=== PATIENT | female | born 1980 | race Two or more races ===

== ENCOUNTER 2024-06-10 10:21 | Emergency (ER) | payer BC, SELFPAY ==
[2024-06-10 10:52] VITALS: BP 131/85; PULSE 73; RESP 18; TEMP 36.8; O2SAT 98; BMI 22.8
--- NOTE | 2024-06-10 11:11 | XR_ITS ---
EXAMINATION: Ankle, left 3 views . Technique: Ankle AP, oblique, lateral 3 views Date and time of exam: June 10, 2024 1116 hrs. Indications: Patient fell last week with injury to the ankle, ankle pain Findings: No ankle dislocation On the AP view of the foot there is a small chip fracture off the fibular tip which may be acute This is not well visualized on this examination The appearance should be clinically correlated Impression: No ankle dislocation On the AP portable film there is a small chip fracture off the fibular tip which may be acute, the appearance should be clinically correlated
--- NOTE | 2024-06-10 11:11 | XR_ITS ---
Examination: Foot, left, 3 views Technique: AP, oblique, lateral views foot, 3 views Date and time of exam: June 10, 2024 1116 hrs. Indications: Patient fell last week with injury to the foot, persistent foot pain Findings: No acute foot fracture On the AP view of the foot there is a small chip fracture off the fibular tip, clinical correlation advised Impression: On the AP foot film there is a small chip fracture off the fibular tip which may be acute, clinical correlation advised
--- NOTE | 2024-06-10 12:01 | EDNOTE_ITS ---
<Statement entered by Kaycee Osman MD - 06/10/24 16:21> As co-signing physician, I was present and available for consult prn. I concur with the plan and care as documented by the midlevel provider. Lower Extremity Injury RME/HPI General Chief Complaint: Extremity Injury, Lower Stated Complaint: left knee-foot pain / swelling Time Seen by Provider: 06/10/24 10:43 Arrival date/time: 06/10/24 10:21 44-year-old male presents emergency department with complaint of left ankle and left foot pain after parasailing in [place] Limitations: no limitations Related Data Home Medications ?Medication ?Instructions ?Recorded ?Confirmed alprazolam 1 mg tablet 1 mg PO TID 07/04/22 07/04/22 cyclobenzaprine 10 mg tablet 10 mg PO HS PRN Spasms 07/04/22 07/04/22 escitalopram oxalate 10 mg tablet 10 mg PO QDAY 07/04/22 07/04/22 hydrocodone 5 mg-acetaminophen 325 1 tab PO QDAY PRN Pain 07/04/22 07/04/22 mg tablet Previous Rx's ?Medication ?Instructions ?Recorded azithromycin 250 mg tablet See Rx Instructions PO .COMPLEX #6 02/14/23 tabs dicyclomine 20 mg tablet 20 mg PO TID #30 tabs 11/24/23 ibuprofen 800 mg tablet 800 mg PO TID PRN pain #30 tabs 11/24/23 lactulose 20 gram oral packet 20 g PO BID PRN constipation #30 ea 11/24/23 Allergies Allergy/AdvReac Type Severity Reaction Status Date / Time coconut Allergy Severe Anaphylaxis Verified 06/10/24 10:22 phenazopyridine Allergy Severe HIVES Verified 06/10/24 10:22 tomato Allergy Severe HIVES Verified 06/10/24 10:22 Review of Systems Review of Systems Systems Reviewed: All systems reviewed, normal except as documented Constitutional Constitutional: Reports system reviewed and no additional complaints, except as documented, Denies fever(s) and Denies headache(s) Eyes Eyes: Reports system reviewed and no additional complaints, except as documented and Denies blurry vision ENT Ears, Nose, Mouth, and Throat: Reports system reviewed and no additional complaints, except as documented, Denies headache(s), Denies nasal congestion and Denies nasal discharge Cardiovascular Cardiovascular: Reports system reviewed and no additional complaints, except as documented, Denies chest pain and Denies dyspnea Respiratory Respiratory: Reports system reviewed and no additional complaints, except as documented, Denies chest congestion, Denies cough and Denies dyspnea Gastrointestinal Gastrointestinal: Reports system reviewed and no additional complaints, except as documented and Denies abdominal pain Musculoskeletal Musculoskeletal: Reports system reviewed and no additional complaints, except as documented, Reports abnormal gait, Reports arthralgias, Denies deformity, Reports joint swelling, Denies numbness, Reports stiffness and Denies tingling Integumentary/Breasts Skin/Breast: Reports system reviewed and no additional complaints, except as documented and Denies rash Neurologic Neurologic: Reports system reviewed and no additional complaints, except as documented, Reports as per HPI, Reports abnormal gait, Denies headache(s), Denies numbness and Denies tingling Past Medical History Past Medical History NEUROLOGIC: Negative Neurological Disorders CARDIAC: Negative Cardiac Disorders ED Exam General Limitations: Present no limitations General appearance: Present alert and in no apparent distress Head Head exam: Present atraumatic Eye Eye exam: Present normal appearance, PERRL and EOMI ENT ENT exam: Present normal exam, normal oropharynx and mucous membranes moist Neck Neck exam: Present normal inspection, full ROM and trachea midline Chest Chest inspection: Present normal inspection and symmetric chest wall rise Respiratory Respiratory exam: Present normal lung sounds bilaterally Cardiovascular Cardiovascular exam: Present regular rate, normal rhythm and normal heart sounds Abdominal Exam Abdominal exam: Present soft and normal bowel sounds Extremities Exam Extremities exam: Present full ROM, tenderness, normal capillary refill and joint swelling; Absent pedal edema or calf tenderness Back Exam Back exam: Present normal inspection and full ROM Neurological Exam Neurological exam: Present alert, oriented X3 and CN II-XII intact Psychiatric Psychiatric exam: Present normal affect and normal mood Skin Skin exam: Present warm, dry, intact and normal color Course Quality Measures none Orders Category Date Time Status Splint / Immobilizer STAT Care 06/10/24 12:09 Active XR ankle comp LT min 3V Stat Exams 06/10/24 11:11 Completed XR foot comp LT min 3V Stat Exams 06/10/24 11:11 Completed HYDROcodone*/APAP 5/325 [[place] 5/325] Med 06/10/24 12:08 Discontinued 1 tab PO X1 ONE Vital Signs Vital signs: Vital Signs Temperature 98.3 F 06/10/24 10:52 Pulse Rate 73 06/10/24 10:52 Respiratory Rate 18 06/10/24 10:52 Blood Pressure 131/85 H 06/10/24 10:52 Pulse Oximetry (%) 98 06/10/24 10:52 Oxygen Delivery Method Room Air 06/10/24 10:52 O2 saturation 98% room air within normal limits Procedures -ED Splint Fabrication: Clinician Made Type: Posterior Leg Reason for Splint: Improve Function, Optimal Positioning and Pain Management Site condition: Pain Circulation Distal to Splint: Yes Movement Distal to Splint: Yes Senation Distal to Splint: Yes Tolerance: Tolerates Well Extremity Injury, Lower MDM Narrative MDM Narrative:: 44-year-old male presents emergency department with complaint of left ankle and left foot pain after parasailing in [place] On exam patient has mild swelling left lateral malleolus X-ray of the left ankle and foot obtained patient appears to have fracture distal fibula Patient placed in a posterior short leg splint Patient reports that she is crutches at home Consultation: I spoke with Dr. Pfeiffer states he will see the patient as office Sunday 3 PM Patient data External records reviewed:: [facility] previous records Clinical information provided by:: patient Social determinants that could affect healthcare access:: none Patient has the following chronic illnesses:: None How is presenting disease/condition affected by chronic disease/condition?: no chronic disease Evaluation data The following diagnostics were reviewed and interpreted by me:: radiology exam(s) Lab and/or radiology exams considered but not ordered:: Radiology obtain Interpretation Summary: Reviewed by me Medications / Prescriptions Medications or Prescriptions considered but not ordered:: Given Medication administrations:: Medication Administration History Discontinued Medications Hydrocodone Bitart/Acetaminophen (Hydrocodone/Apap 5/325 Tablet) 1 tab PO X1 ONE Stop: 06/10/24 12:09 Given Consultations Consultation(s) initiated? (list below): Yes Consultation #1 (Physician, Specialty, Details): Dr Brody Diagnosis Extremity Injury, Lower Differential Diagnosis: ankle sprain and strain and ankle fracture Most likely diagnosis given after review of the tests above:: Ankle fracture Admission Indicated Admission indicated?: not indicated Admission Request Was there a request for admission?: No Disposition Plan Disposition Plan: Discharge Discharge Attestation Discharge Attestation: The patient and all family members were given an opportunity to ask questions and understood the discharge instructions. Discharge instructions specifically effects, indications for sooner follow up or return to the emergency department, and the expected course of current diagnosis. Patient condition: Stable Discharge Plan Plan Patient Disposition: HOME (Self Care) Disposition Comment: Stable Prescriptions/Referrals Prescriptions/Med Rec: No Action cyclobenzaprine 10 mg tablet 10 mg PO HS PRN (Reason: Spasms) Patient Comments: TAKE 1 TABLET BY MOUTH EVERY NIGHT AT BEDTIME NEEDED alprazolam 1 mg tablet 1 mg PO TID Patient Comments: TAKE 1 TABLET BY MOUTH THREE TIMES A DAY hydrocodone-acetaminophen 5-325 mg tablet 1 tab PO QDAY PRN (Reason: Pain) Patient Comments: TAKE 1 TABLET BY MOUTH EVERY DAY NEEDED FOR 30 DAYS escitalopram oxalate 10 mg tablet 10 mg PO QDAY Patient Comments: TAKE 1 TABLET BY MOUTH EVERY DAY lactulose 20 gram packet 20 g PO BID PRN (Reason: constipation) Qty: 30 0RF ibuprofen 800 mg tablet 800 mg PO TID PRN (Reason: pain) Qty: 30 0RF dicyclomine 20 mg tablet 20 mg PO TID Qty: 30 0RF azithromycin 250 mg tablet See Rx Instructions .ROUTE .COMPLEX Qty: 6 0RF Rx Instructions: For 250 mg dose pack: take 500 mg today (day 1), then 250 mg for 4 days (days 2-5) Referrals: No Primary/Family,Physician [Primary Care Provider] - In 1 week Dorian Brody MD [Physician] - 06/16/24 3:00 pm Problem List Clinical Impression: Fracture of distal end of fibula Patient/Caregiver Discharge Instructions Education Materials: How [employer] [facility] Additional Instructions: Please follow-up with orthopedist Sunday at 3 PM as discussed for worsening symptoms return immediately Print Language: Persian Stand Alone Forms: Kellen Award Info., Patient Portal Info Letter PA/LITHOGRAPHIC PRESS OPERATOR Supervising Physician PA/LITHOGRAPHIC PRESS OPERATOR Supervising Physician: Dr. osman
--- NOTE | 2024-06-10 12:17 | PC.NURSE ---
1216 Patient states she already has crutches at home and does not need any today.
[2024-06-10] MEDS: HYDROcodone/APAP 5/325 TABLET 1 TAB PO (12:18)
== END 2024-06-10 12:26 | disposition home or self-care (01) ==
PROVIDERS: Emergency Provider Emergency Medicine
DX: S82.402A Unspecified fracture of shaft of left fibula, initial encounter for closed fracture (principal); Y93.19 Activity, other involving water and watercraft; X58.XXXA Exposure to other specified factors, initial encounter
CPT/HCPCS: 29515; 73610; 73630; 99283; A9270

== ENCOUNTER 2024-10-02 11:28 | Emergency (ER) | payer BC, SELFPAY ==
[2024-10-02 12:08] VITALS: BP 120/65; PULSE 87; RESP 18; TEMP 36.6; O2SAT 99; BMI 23.0
--- NOTE | 2024-10-02 12:31 | XR_ITS ---
Examination: CT abdomen with intravenous contrast CT pelvis with intravenous contrast 2-D coronal reconstructions 2-D sagittal reconstructions Date and time of exam:October 02, 2024 at 1636 hrs. Indications: Umbilical pain radiating to the right flank today. CTDI: vol (mGy) 8.1 DLP: (mGycm) 410 Technique: Multiple axial sections of the abdomen and pelvis have been obtained. 64 slice high-resolution scanner used. 3 mm axial sections have been obtained, post intravenous injection 60 cc [id number] 2-D sagittal, coronal reconstructions obtained. Low dose protocols were performed. One or more of the following dose reduction techniques were used; automated exposure control, adjustment of the mA and/or KV according to patient size, use of iterative reconstruction technique. Findings: No focal liver or splenic lesions Absent gallbladder No pancreatic or adrenal mass No renal or ureteral calculi, no hydronephrosis No bowel obstruction 11 mm fat-containing umbilical hernia Appendix is partly visualized and does not appear enlarged or inflamed, coronal image 65 No pericecal inflammatory change No diverticulitis No pelvic mass Urinary bladder wall is thickened up to 4 mm Impression: No renal or ureteral calculi, no hydronephrosis 11 mm fat-containing umbilical hernia No CT findings of appendicitis No bowel obstruction diverticulitis or free air Cystitis pattern
--- NOTE | 2024-10-02 12:33 | XR_ITS ---
Examination: Abdomen AP single view Technique: AP portable supine abdomen, single view Exam date and time: October 02, 2024 1358 hours INDICATIONS: Right lower abdominal pain today. FINDINGS: Mild small bowel ileus Mild to moderate air and stool throughout the colon No obstruction No free air Surgical clips upright abdomen IMPRESSION: Mild small bowel ileus
--- NOTE | 2024-10-02 12:33 | PD.EDRME ---
Rapid Medical Screening Exam RME Arrival date/time: 10/02/24 11:28 44-year-old female here for evaluation of mid umbilical abdominal pain associated with nausea. History of small bowel obstruction. I have greeted and performed a focused initial assessment of this patient. Initial appropriate labs ordered at this time. A comprehensive ED assessment and evaluation of the patient and analysis of all test and completion of medical decision making process will be conducted by additional ED provider. Chief Complaint: Abdominal Pain Time Seen by Provider: 10/02/24 12:16 Vital signs: Vital Signs Temperature 97.9 F 10/02/24 12:08 Pulse Rate 87 10/02/24 12:08 Respiratory Rate 18 10/02/24 12:08 Blood Pressure 120/65 10/02/24 12:08 Pulse Oximetry (%) 99 10/02/24 12:08 Oxygen Delivery Method Room Air 10/02/24 12:08
[2024-10-02 13:01] LABS: Basophils % (Auto) 1 % (0-2.5); Eosinophils # (Auto) 0.1 Thou/mm3 (0.0-0.5); Eosinophils % (Auto) 1 % (0-10); Hematocrit 31.8 % (36.0-46.0); Hemoglobin 10.3 g/dL (12.0-16.0); Immature Granulocytes % (Auto) 0 % (0-0); Immature Granulocytes Auto 0.01 Thou/mm3 (0.00-0.00); Lymphocytes # (Auto) 2.4 Thou/mm3 (1.0-4.8); Lymphocytes % (Auto) 44 % (10-50); Mean Corpuscular HGB Conc 32.4 g/dl (31.0-37.0); Mean Corpuscular Hemoglobin 24.8 pg (25.0-35.0); Mean Corpuscular Volume 77 fL (80-100); Monocytes # (Auto) 0.4 Thou/mm3 (0.0-0.8); Monocytes % (Auto) 7 % (0-12); Neutrophils # (Auto) 2.5 Thou/mm3 (1.8-7.7); Neutrophils % (Auto) 47 % (37-80); Nucleated Red Blood Cell % 0 /100 WBC (0); Platelet Count 363 Thou/mm3 (140-440); RDW Standard Deviation 44.4 fL (36.4-46.3); Red Blood Count 4.15 Miln/mm3 (4.00-5.20); White Blood Count 5.4 Thou/mm3 (3.6-11.0)
[2024-10-02 13:13] LABS: Alanine Aminotransferase 70 U/L (10-49); Albumin, Serum 4.6 gm/dL (3.5-5.0); Albumin/Globulin Ratio 1.6 (1.2-2.2); Alkaline Phosphatase 126 U/L (46-116); Anion Gap 8 (7-16); Aspartate Amino Transferase 74 U/L (0-34); BUN/Creatinine Ratio 12 Ratio (12-20); Bilirubin,Total 0.3 mg/dL (0.3-1.2); Blood Urea Nitrogen 11 mg/dL (9-23); Calcium 9.7 mg/dL (8.3-10.6); Calcium (Corrected) 9.7 mg/dL (8.5-10.1); Carbon Dioxide 26.7 mMol/L (20.0-31.0); Chloride 106 mMol/L (98-107); Creatinine (Component) 0.9 mg/dL (0.6-1.3); Estimated Creatinine Clearance 61.8 mL/min (>60); Globulin 2.8 gm/dL (2.3-3.5); Glucose 94 mg/dL (74-106); Lipase 40 U/L (12-53); Osmolality,Calculated 280 (275-295); Potassium 4.1 mMol/L (3.4-5.1); Sodium 141 mMol/L (136-145); Total Protein 7.4 gm/dL (5.7-8.2); eGFR > 60 See Note
[2024-10-02 13:27] LABS: Collection Type, Urine Clean Catch
[2024-10-02 13:38] LABS: HCG Qualitative,Urine Negative
[2024-10-02 13:57] LABS: Bilirubin,Urine Negative (Negative); Blood,Urine Negative (Negative); Clarity,Urine Clear (Clear/Hazy); Color,Urine Yellow (Lt Yel-Yel); Glucose, Urine Negative (Negative); Ketones,Urine Trace (Negative); Leukocyte Esterase,Urine Negative (Negative); Nitrite,Urine Negative (Negative); Protein,Urine Negative (Neg - Trace); RBC,Urine 3 /hpf (0-3); Specific Gravity,Urine 1.014 (1.001-1.035); Squamous Epithelial Cell,Urine < 1 /hpf (0-5); Urobilinogen,Urine Negative mg/dL (0.0-1.0); WBC,Urine 1 /hpf (0-5)
[2024-10-02] MEDS: KETOROLAC INJ 60 MG/2 ML VIAL 30 MG IM (15:24)
[2024-10-02 16:20] VITALS: BP 108/70; PULSE 88; RESP 18; TEMP 36.9; O2SAT 99
--- NOTE | 2024-10-02 19:03 | PD.EDABDPN ---
ED Abdominal Pain RME/HPI General Chief Complaint: Abdominal Pain Stated complaint: RLQ ABD PAIN RADIATING TO R BACK WITH N/VX1 DAY Time seen by provider: 10/02/24 12:16 Arrival date/time: 10/02/24 11:28 RME / HPI RME / HPI narrative: 10/02/24 11:28 44-year-old female here for evaluation of mid umbilical abdominal pain associated with nausea. History of small bowel obstruction. I have greeted and performed a focused initial assessment of this patient. Initial appropriate labs ordered at this time. A comprehensive ED assessment and evaluation of the patient and analysis of all test and completion of medical decision making process will be conducted by additional ED provider. This section includes all my notes and documentations, including HPI, PE, and ED course. Los Aguirre MD HPI: 44 y/o female with Hx of Anxiety and SHX of bariatric, inguinal hernia repair,?cholecystectomy, and hysterectomy presents to ED c/o belly button pain that spreads to the back for over a week, worse in the past couple of days. No vomiting. No fever. No other complaints. ROS: All negative except as documented in HPI. Physical Exam: General: Alert and oriented. In obvious pain. Eyes: Conjunctivae and lids clear. ENT: No nasal congestion. Neck: Supple. Heart: RRR. Lungs: No respiratory distress. Good air movement. No rhonchi, wheezing, rales. Abdomen: Soft. [place] sized umbilical mass noted with palpation. Normal BS. No distention. No rebound or guarding. Back: No CVA tenderness. Skin: Warm and dry. Neuro: Alert and oriented X 3. I reviewed all diagnostic test results. My interpretation of the KUB is NAD. My review of the abdominal CT report is 11 mm fat-containing umbilical hernia. Blood tests and urine tests unremarkable. At this point, diagnoses include fat-containing umbilical hernia. Treatment here included: Morphine and Toradol. Significant improvement noted. Recommended elective outpatient surgery. Based on my best medical judgment, made decision no further evaluation or treatment indicated at this time. Patient understands and agrees to the discharge instructions customized and printed, see below. Discharge Instructions from Dr. Aguirre printed for you: 1. After evaluation, your pain is due to umbilical hernia. 2. There is no emergency because there is only fat (no intestine) in the hernia. 3. Tylenol with codeine for severe pain. 4. Avoid increasing abdominal pressure, such as from lifting and pushing too hard in the bathroom. 5. See a private doctor on 10/03/24 for recheck and further care. 6. Seek immediate medical care with worsening or with any concerns. Los Aguirre MD Related Data Home Medications ?Medication ?Instructions ?Recorded ?Confirmed alprazolam 1 mg tablet 1 mg PO TID 07/04/22 07/04/22 cyclobenzaprine 10 mg tablet 10 mg PO HS PRN Spasms 07/04/22 07/04/22 escitalopram oxalate 10 mg tablet 10 mg PO QDAY 07/04/22 07/04/22 hydrocodone 5 mg-acetaminophen 325 1 tab PO QDAY PRN Pain 07/04/22 07/04/22 mg tablet Previous Rx's ?Medication ?Instructions ?Recorded azithromycin 250 mg tablet See Rx Instructions PO .COMPLEX #6 02/14/23 tabs dicyclomine 20 mg tablet 20 mg PO TID #30 tabs 11/24/23 ibuprofen 800 mg tablet 800 mg PO TID PRN pain #30 tabs 11/24/23 lactulose 20 gram oral packet 20 g PO BID PRN constipation #30 ea 11/24/23 acetaminophen 300 mg-codeine 30 mg 2 tab PO Q8H PRN pain #20 tabs 10/02/24 tablet Allergies Allergy/AdvReac Type Severity Reaction Status Date / Time coconut Allergy Severe Anaphylaxis Verified 10/02/24 11:33 phenazopyridine Allergy Severe HIVES Verified 10/02/24 11:33 tomato Allergy Severe HIVES Verified 10/02/24 11:33 Review of Systems Review of Systems Systems Reviewed: All systems reviewed, normal except as documented Narrative Review of Systems: Refer to HPI above. Past Medical History Past Medical History GASTROINTESTINAL: Positive Gall Bladder Disease PSYCHO/SOCIAL: Positive Anxiety Surgical History SURGICAL: Positive Hysterectomy (done in 2018) Social History SMOKING STATUS: Never smoker SUBSTANCE USE: does not use ED Exam Narrative Physical exam: Refer to HPI above Course Quality Measures none Orders Category Date Time Status CT Screening NOW Care 10/02/24 12:[address] abdomen pelvis w con Stat Exams 10/02/24 12:31 Completed XR abdomen 1V Stat Exams 10/02/24 12:33 Completed CBC Stat Lab 10/02/24 12:48 Completed Comprehensive Metabolic Panel Stat Lab 10/02/24 12:48 Completed HCG Qualitative,Urine Stat Lab 10/02/24 13:15 Completed Lipase Stat Lab 10/02/24 12:48 Completed Urinalysis Stat Lab 10/02/24 13:15 Completed Ketorolac Inj [Toradol Inj] Med 10/02/24 15:15 Discontinued 30 mg IM X1 ONE Morphine Inj Med 10/02/24 19:02 Discontinued 5 mg IVP X1 ONE Vital Signs Vital signs: Vital Signs Temperature 97.9 F 10/02/24 12:08 Pulse Rate 87 10/02/24 12:08 Respiratory Rate 18 10/02/24 12:08 Blood Pressure 120/65 10/02/24 12:08 Pulse Oximetry (%) 99 10/02/24 12:08 Oxygen Delivery Method Room Air 10/02/24 12:08 Abdominal Pain MDM MDM Narrative MDM Narrative:: Scribe Attestation: Adrianna Jacobsen, am scribing for and in the presence of Dr. Aguirre. Provider Notation: Although this document has been carefully reviewed, there may still be some phonetic and other typographical errors. These errors are purely grammatical due to imperfections in the software program and should not be construed in any way to compromise the substance of the patient's medical care during this visit. Patient data External records reviewed:: [facility] previous records (Prior ED records reviwed from 06/10/2024. Patient was seen for Fracture of distal end of fibula.) Clinical information provided by:: patient Social determinants that could affect healthcare access:: none Patient has the following chronic illnesses:: Cholecystectomy How is presenting disease/condition affected by chronic disease/condition?: uneffected by Evaluation data The following diagnostics were reviewed and interpreted by me:: lab results and radiology exam(s) Lab and/or radiology exams considered but not ordered:: None Interpretation Summary: Fat-containing umbilical hernia Medications / Prescriptions Medications or Prescriptions considered but not ordered:: None Medication administrations:: Medication Administration History Discontinued Medications Ketorolac Tromethamine (Ketorolac Inj 60 Mg/2 Ml Vial) 30 mg IM X1 ONE Stop: 10/02/24 15:16 Last Admin: 10/02/24 15:24 Dose: 30 mg Documented By: GM Morphine Sulfate (Morphine Sulf Inj 10 Mg/Ml Vial) 5 mg IVP X1 ONE Stop: 10/02/24 19:03 Last Admin: 10/02/24 19:18 Dose: 5 mg Documented By: EE Morphine Sulfate, Ketorolac Tromethamine Consultations Consultation(s) initiated? (list below): No Diagnosis Differential diagnosis abdominal pain: abdominal pain, acute appendicitis, calculus of kidney, constipation, diverticulitis, endometriosis, gastroenteritis, pancreatitis, small bowel obstruction and other (large bowel obstruction) Most likely diagnosis given after review of the tests above:: Fat-containing umbilical hernia Admission Indicated Admission indicated?: not indicated Explain why admission is indicated or not indicated:: With significant improvement, there was no indication for admission. Admission Request Was there a request for admission?: No Disposition Plan Disposition Plan: Discharge Discharge Attestation Discharge Attestation: The patient and all family members were given an opportunity to ask questions and understood the discharge instructions. Discharge instructions specifically effects, indications for sooner follow up or return to the emergency department, and the expected course of current diagnosis. Patient condition: Stable Discharge Plan Plan Patient Disposition: HOME (Self Care) Prescriptions/Referrals Prescriptions/Med Rec: New acetaminophen-codeine 300-30 mg tablet 2 tab PO Q8H MDD 6 PRN (Reason: pain) Qty: 20 0RF No Action cyclobenzaprine 10 mg tablet 10 mg PO HS PRN (Reason: Spasms) Patient Comments: TAKE 1 TABLET BY MOUTH EVERY NIGHT AT BEDTIME NEEDED alprazolam 1 mg tablet 1 mg PO TID Patient Comments: TAKE 1 TABLET BY MOUTH THREE TIMES A DAY hydrocodone-acetaminophen 5-325 mg tablet 1 tab PO QDAY PRN (Reason: Pain) Patient Comments: TAKE 1 TABLET BY MOUTH EVERY DAY NEEDED FOR 30 DAYS escitalopram oxalate 10 mg tablet 10 mg PO QDAY Patient Comments: TAKE 1 TABLET BY MOUTH EVERY DAY lactulose 20 gram packet 20 g PO BID PRN (Reason: constipation) Qty: 30 0RF ibuprofen 800 mg tablet 800 mg PO TID PRN (Reason: pain) Qty: 30 0RF dicyclomine 20 mg tablet 20 mg PO TID Qty: 30 0RF azithromycin 250 mg tablet See Rx Instructions .ROUTE .COMPLEX Qty: 6 0RF Rx Instructions: For 250 mg dose pack: take 500 mg today (day 1), then 250 mg for 4 days (days 2-5) Referrals: Nuvia Cline [Primary Care Provider] - In 1 week Problem List Clinical Impression: Umbilical hernia Patient/Caregiver Discharge Instructions Discharge Activity: activity as tolerated Education Materials: ED Hernia (Adult) Additional Instructions: Discharge Instructions from Dr. Aguirre printed for you: 1. After evaluation, your pain is due to umbilical hernia. 2. There is no emergency because there is only fat (no intestine) in the hernia. 3. Tylenol with codeine for severe pain. 4. Avoid increasing abdominal pressure, such as from lifting and pushing too hard in the bathroom. 5. See a private doctor on 10/03/24 for recheck and further care. 6. Seek immediate medical care with worsening or with any concerns. Print Language: Mozambican Stand Alone Forms: Kellen Award Info., Patient Portal Info Letter
[2024-10-02] MEDS: MORPHINE SULF INJ 10 MG/ML VIAL 5 MG IVP (19:18)
== END 2024-10-02 19:22 | disposition home or self-care (01) ==
PROVIDERS: Nurse Practitioner Primary Care; Emergency Provider Emergency Medicine; PCP Family Medicine
DX: K42.9 Umbilical hernia without obstruction or gangrene (principal)
CPT/HCPCS: 36415; 74018; 74177; 80053; 81001; 81025; 83690; 85025; 96372; 96374; 99285; A4649; J1885; J2270; Q9967

== ENCOUNTER 2024-12-08 09:20 | Day surgery (SDC) | payer BC, SELFPAY ==
--- NOTE | 2024-12-05 08:47 | EKG_ITS ---
[facility] Test Date: 2024-12-05 Pat Name: ANURAG ROBERTS Department: Room: - Gender: Female [employer]: VIVIANA : 1980 Requested By: Eric Kemp Order Number: [id number] Reading MD: Eric Kemp Measurements Intervals [place] Rate: 57 P: -8 VA: 133 QRS: 61 QRSD: 85 T: 65 QT: 426 QTc: 415 Interpretive Statements SINUS BRADYCARDIA Compared to ECG 07/26/2023 05:20:08 No significant changes /store/S0/[id number]
[2024-12-05 08:59] VITALS: BMI 23.1
[2024-12-05 09:25] LABS: Collection Type, Urine Clean Catch
[2024-12-05 09:50] LABS: Basophils % (Auto) 1 % (0-2.5); Eosinophils # (Auto) 0.1 Thou/mm3 (0.0-0.5); Eosinophils % (Auto) 2 % (0-10); Hematocrit 31.1 % (36.0-46.0); Hemoglobin 9.7 g/dL (12.0-16.0); Immature Granulocytes % (Auto) 0 % (0-0); Immature Granulocytes Auto 0.01 Thou/mm3 (0.00-0.00); Lymphocytes # (Auto) 1.8 Thou/mm3 (1.0-4.8); Lymphocytes % (Auto) 34 % (10-50); Mean Corpuscular HGB Conc 31.2 g/dl (31.0-37.0); Mean Corpuscular Hemoglobin 24.4 pg (25.0-35.0); Mean Corpuscular Volume 78 fL (80-100); Monocytes # (Auto) 0.6 Thou/mm3 (0.0-0.8); Monocytes % (Auto) 11 % (0-12); Neutrophils # (Auto) 2.8 Thou/mm3 (1.8-7.7); Neutrophils % (Auto) 53 % (37-80); Nucleated Red Blood Cell % 0 /100 WBC (0); Platelet Count 339 Thou/mm3 (140-440); RDW Standard Deviation 48.4 fL (36.4-46.3); Red Blood Count 3.98 Miln/mm3 (4.00-5.20); White Blood Count 5.3 Thou/mm3 (3.6-11.0)
[2024-12-05 09:51] LABS: Bacteria,Urine Rare; Bilirubin,Urine Negative (Negative); Blood,Urine Negative (Negative); Clarity,Urine Clear (Clear/Hazy); Color,Urine Colorless (Lt Yel-Yel); Glucose, Urine Negative (Negative); Ketones,Urine Negative (Negative); Leukocyte Esterase,Urine Negative (Negative); Nitrite,Urine Negative (Negative); PH,Urine 6.5 (5.0-7.0); Protein,Urine Negative (Neg - Trace); RBC,Urine 1 /hpf (0-3); Specific Gravity,Urine 1.005 (1.001-1.035); Squamous Epithelial Cell,Urine < 1 /hpf (0-5); Urobilinogen,Urine Negative mg/dL (0.0-1.0); WBC,Urine < 1 /hpf (0-5)
[2024-12-05 09:56] LABS: Partial Thromboplastin Time 23.3 Seconds (22.0-36.0)
[2024-12-05 10:00] LABS: Alanine Aminotransferase 28 U/L (10-49); Albumin, Serum 4.2 gm/dL (3.5-5.0); Albumin/Globulin Ratio 1.8 (1.2-2.2); Alkaline Phosphatase 113 U/L (46-116); Anion Gap 6 (7-16); Aspartate Amino Transferase 39 U/L (0-34); BUN/Creatinine Ratio 10 Ratio (12-20); Bilirubin,Total 0.4 mg/dL (0.3-1.2); Blood Urea Nitrogen 8 mg/dL (9-23); Chloride 106 mMol/L (98-107); Creatinine (Component) 0.8 mg/dL (0.6-1.3); Estimated Creatinine Clearance 72.7 mL/min (>60); Globulin 2.4 gm/dL (2.3-3.5); Glucose 91 mg/dL (74-106); Osmolality,Calculated 283 (275-295); Potassium 4.3 mMol/L (3.4-5.1); Sodium 143 mMol/L (136-145); Total Protein 6.6 gm/dL (5.7-8.2); eGFR > 60 See Note
[2024-12-08] VITALS (8 sets, daily range): BP systolic 96–118; BP diastolic 55–79; PULSE 55–93; RESP 17–20; TEMP 36.1–36.8; O2SAT 100; BMI 22.6
[2024-12-08] MEDS: RINGERS LACTATED 1000 ML 1,000 ML 20 ML IV (10:13)
--- NOTE | 2024-12-08 10:36 | SUR.PREOP ---
Patient expressed gratitude for prayer before their procedure.
--- NOTE | 2024-12-08 12:46 | ESOP_ITS ---
Date of Procedure 12/08/24 Pre Op Diagnosis Incarcerated ventral incisional hernia and umbilical hernia Post Op Diagnosis Same. Procedure Incarcerated umbilical and incisional hernia repair 8 cm defect removal of portion of omentum dated 12/08/2024 Findings This patient had bariatric surgery with a supraumbilical incision she developed a hernia and this incision and she also had an umbilical hernia which was incarcerated. Omentum was incarcerated a portion of the omentum was removed. There were no other findings. Procedure Description The patient is interviewed in the preoperative area and the procedure was discussed in detail with the patient including expectation of outcomes. Explanation of the technique and complications. An informed consent was obtained. Anesthesia consent was obtained by the anesthesiologist. The hernia sites were marked on the surface. Patient is brought back to the operating room. The patient is positioned supine on the operating table and general anesthesia is administered in a satisfactory manner. The chest abdomen and thigh genitalia regions are prepped and draped in usual manner. IV antibiotics were given and a timeout procedure was carried out. Intraoperative ultrasound is carried out with 7.5 MHz linear digital ultrasound probe. The hernia defects were identified and marked on the surface to assess the extent of the procedure. Then the local anesthesia quarter percent Marcaine with epinephrine is used. Vertical incision is made around the previous incision above and around the umbilicus and below the umbilicus. Dissection is carried out in the subcutaneous tissue to the fascia and the 2 different defects are identified. Gentle dissection is carried out and hernia sacs are isolated. The sac is opened and was removed as specimen. There were significantly dense adhesions of the omentum within the hernia sac and surrounding subcutaneous tissue. The contents are reduced. Hemostasis is achieved. Dissection is carried out circumferentially from the peritoneal side to make sure there were no adhesions and bowel attached to the anterior abdominal wall. Lysis of ad hesions is carried out on the peritoneal side releasing the omental adhesions circumferentially to about 5 cm around. All the hernias defects were incorporated into one defect. The defect is measured. It is about 8 cm in length and 63cm in the width. The laps and instrument counts are obtained they are correct x2 and then I examined the abdominal wall because of the previous bariatric surgery her abdominal wall does not have much tension and the loose and came together nicely and therefore I decided to close the defect primarily without a patch. This was done with 0 Ethibond [id number] stitches. After that operative field is thoroughly irrigated with saline solution hemostasis achieved. Umbilicus it attached back to the fascia with interrupted 3-0 Vicryl suture. Operative field is thoroughly irrigated again with saline solution and the subcutaneous tissues approximated with 3-0 chromic interrupted suture. The skin is approximated by 4-0 Monocryl subcuticular stitches. Steri-Strips were applied. Sterile dressing and abdominal binder is applied. Patient tolerated the procedure very well complications none. Patient is transferred to recovery room in a satisfactory condition. Anesthesia GETA Drains None. Implants None. Pathology / specimen Other (Portion of omentum and hernia sac) Estimated Blood Loss 5 Condition Stable Disposition PACU Surgeon Eric Kemp MD Surgical Staff Operation Date: 12/08/24 11:45 Case Staff FOOD SAFETY FIELD SPECIALIST: Juliano Barron RNpatient support assistant: [place] May CONCHE LOADER AND UNLOADERKeturah FarleyElda certified surgical first assistant with a student tech. Paul ABERNATHY airport tower controller Robert Rajan RN airport tower controller
--- NOTE | 2024-12-08 12:50 | SUR.PHASEI ---
1250: Pt. AAOx4, vitals stable, breathing unlabored, no complaint of pain or nausea, dressing to midline ABD CDI, no active bleed noted, report received from Robert ABERNATHY and Juliano OLVERA.
[2024-12-08] MEDS: fentaNYL CIT INJ 50 mCg/ML AMP 2ML IVP (13:04)
[2024-12-08] MEDS: fentaNYL CIT INJ 50 mCg/ML AMP 2ML 25 MCG IVP (13:17)
--- NOTE | 2024-12-08 13:50 | SUR.PHASEII ---
1350: Pt. AAOx4, vitals stable, breathing unlabored, no complaint of pain or nausea, dressing to ABD CDI, no active bleed noted, pt. tolerated sips of water well, pt. ambulated to wheelchair with steady gait and no assist, no complications. Gave discharge instructions to the pt. and her ride, both verbalized understanding and had no further questions. Pt. left with all personal belongings.
== END 2024-12-08 13:50 | disposition home or self-care (01) ==
PROVIDERS: PCP Family Medicine; Referring Provider Specialist; Visit Provider Specialist
PROC: (CPT 49594; principal; 2024-12-08 11:30)
DX: K42.9 Umbilical hernia without obstruction or gangrene (principal); K43.0 Incisional hernia with obstruction, without gangrene; Z98.84 Bariatric surgery status; Z01.810 Encounter for preprocedural cardiovascular examination
CPT/HCPCS: 49594; 36415; 80053; 81001; 85025; 85730; 93005; A4217; A4649; J0131; J0694; J1100; J1580; J2250; J2405; J2704; J2765; J3010; J3490; J7030; J7120; J0665

== ENCOUNTER 2025-04-29 10:31 | Emergency (ER) | payer BC, SELFPAY ==
[2025-04-29 10:32] VITALS: BMI 22.8
[2025-04-29 10:55] VITALS: BP 104/70; PULSE 70; RESP 16; TEMP 36.8; O2SAT 98
--- NOTE | 2025-04-29 11:03 | XR_ITS ---
Examination: CT abdomen with intravenous contrast CT pelvis with intravenous contrast 2-D coronal reconstructions 2-D sagittal reconstructions Date and time of exam: April 29, 2025, 1152 hours, comparison October 02, 2024 INDICATIONS: Periumbilical pain beginning this morning. CTDI: vol (mGy) 10.4 DLP: (mGycm) 289 Technique: Multiple axial sections of the abdomen and pelvis have been obtained. 64 slice high-resolution scanner used. 3 mm axial sections have been obtained, post intravenous injection 60 cc [id number] 2-D sagittal, coronal reconstructions obtained. Low dose protocols were performed. One or more of the following dose reduction techniques were used; automated exposure control, adjustment of the mA and/or KV according to patient size, use of iterative reconstruction technique. Findings: No focal liver or splenic lesions Absent gallbladder No common bile duct stones noted No pancreatic mass No renal or ureteral calculi, no hydronephrosis No bowel obstruction Absent uterus No pelvic mass Normal appendix, coronal image 46, no pericecal inflammatory change IMPRESSION: No CT findings of appendicitis
[2025-04-29 11:15] VITALS: BP 94/40; PULSE 61; RESP 14; TEMP 36.8; O2SAT 100
[2025-04-29 11:18] LABS: Collection Type, Urine Clean Catch; Squamous Epithelial Cell,Urine 0 /hpf (0-5)
--- NOTE | 2025-04-29 11:19 | PD.EDABDPN ---
ED Abdominal Pain RME/HPI General Chief Complaint: Abdominal Pain Stated complaint: MID ABD PAIN X45 MINS; HX INTESTINAL BLOCKAGES Time seen by provider: 04/29/25 11:13 Arrival date/time: 04/29/25 10:31 45-year-old female patient with significant history of multiple abdominal surgery including laparoscopic cholecystectomy, hernia repair secondary to incarcerated hernia umbilicus, came in for evaluation regarding sudden onset of periumbilical pain. Patient woke up on her baseline this morning, had a coffee, and had a bowel movement later on developed sudden onset of periumbilical pain associated with nausea. Back pain is described as sharp, severity moderate. Denies any vomiting denies any fever denies any other complaints no medication was taken prior to ER visit. Related Data Home Medications ?Medication ?Instructions ?Recorded ?Confirmed alprazolam 1 mg tablet 1 mg PO TID PRN anxiety 07/04/22 12/05/24 escitalopram oxalate 10 mg tablet 10 mg PO QDAY 07/04/22 12/05/24 ergocalciferol (vitamin D2) 1,250 1,250 mcg PO QWEEK 12/05/24 12/05/24 mcg (50,000 unit) capsule montelukast 10 mg tablet 10 mg PO QDAY 12/05/24 12/05/24 Previous Rx's ?Medication ?Instructions ?Recorded hydrocodone 10 mg-acetaminophen 1 tab PO Q6H PRN pain #20 tabs 12/08/24 325 mg tablet dicyclomine 20 mg tablet 20 mg PO QID PRN abdominal pain 04/29/25 #30 tabs Allergies Allergy/AdvReac Type Severity Reaction Status Date / Time coconut Allergy Severe Anaphylaxis Verified 04/29/25 10:34 phenazopyridine Allergy Severe HIVES Verified 04/29/25 10:34 tomato Allergy Severe HIVES Verified 04/29/25 10:34 adhesive tape Allergy Mild Rash Verified 04/29/25 10:34 Review of Systems Review of Systems Narrative Review of Systems: Review of system reviewed and within normal limits except mentioned in HPI ED Exam Narrative Physical exam: VITAL SIGNS: Reviewed. GENERAL APPEARANCE: Alert and interactive, follows commands, no acute distress, HEAD AND FACE: Non-traumatic. ENT: PERRL, pink conjunctivitis, eyelid no trauma, Mucous membrane moist. NECK: Supple, nontender, no nuchal rigidity. CHEST: No tenderness, no crepitus, no paradoxical movement, no retractions. LUNGS: Clear, well ventilated, symmetric, no rales, no wheezing, no ronchi, no stridor, good breath sounds bilaterally. HEART: Regular rate, regular rhythm, no murmur, no gallops. ABDOMEN: Soft, positive bowel sounds, nondistended, no guarding, periumbilical tenderness, no masses palpated , no rebound, no masses, RECTAL: Deferred. GENITAL: Deferred. NEUROLOGICAL: Gross motor function intact sensory function intact, Appropriate for age. MUSCULOSKELETAL: low back nontender, full range of motion. EXTREMITIES: Nontender, full range of motion. SKIN: Color pink, dry, no rash, no lacerations, no abrasions, no contusions. LYMPHATICS: Deferred. Course Quality Measures none Orders Category Date Time Status CT Screening NOW Care 04/29/25 11:03 Active Insert IV NOW Care 04/29/25 11:[address] abdomen pelvis w con Stat Exams 04/29/25 11:03 Completed CBC Stat Lab 04/29/25 11:14 Completed Comprehensive Metabolic Panel Stat Lab 04/29/25 11:14 Completed Lipase Stat Lab 04/29/25 11:14 Completed UA, C/S IF [Urinalysis, C/S if Indicated] Stat Lab 04/29/25 11:13 Completed Metoclopramide Inj [Reglan Inj] Med 04/29/25 11:03 Discontinued 10 mg IVP X1 ONE Morphine* Inj Med 04/29/25 11:19 Discontinued 4 mg IVP X1 ONE Sodium Chloride 0.9% 1000 ml [Ns] 1,000 ml Med 04/29/25 11:03 Discontinued IV 999 mls/hr Vital Signs Vital signs: Vital Signs Temperature 98.2 F 04/29/25 10:55 Pulse Rate 70 04/29/25 10:55 Respiratory Rate 16 04/29/25 10:55 Blood Pressure 104/70 04/29/25 10:55 Pulse Oximetry (%) 98 04/29/25 10:55 Oxygen Delivery Method Room Air 04/29/25 10:55 Abdominal Pain MDM MDM Narrative MDM Narrative:: 04/29/25 10:31 45-year-old female patient with significant history of multiple abdominal surgery including laparoscopic cholecystectomy, hernia repair secondary to incarcerated hernia umbilicus, came in for evaluation regarding sudden onset of periumbilical pain. Patient woke up on her baseline this morning, had a coffee, and had a bowel movement later on developed sudden onset of periumbilical pain associated with nausea. Back pain is described as sharp, severity moderate. Denies any vomiting denies any fever denies any other complaints no medication was taken prior to ER visit. Patient's workup today all came back normal including CT scan of the abdomen and pelvis. Patient received IV fluids, morphine, with complete resolution of symptoms. Patient told me that he is going to follow-up with Dr. Kemp general surgeon. Patient is stable for discharge home. Patient data External records reviewed:: None Clinical information provided by:: patient Social determinants that could affect healthcare access:: none Patient has the following chronic illnesses:: None How is presenting disease/condition affected by chronic disease/condition?: no chronic disease Evaluation data The following diagnostics were reviewed and interpreted by me:: lab results and radiology exam(s) Lab and/or radiology exams considered but not ordered:: None Interpretation Summary: See results MDM Medications / Prescriptions Medications or Prescriptions considered but not ordered:: None Medication administrations:: Medication Administration History Discontinued Medications Sodium Chloride (Ns) 1,000 mls @ 999 mls/hr IV .Q1H1M ONE Stop: 04/29/25 12:03 Last Admin: 04/29/25 11:20 Dose: 999 mls/hr Documented By: MARCO Metoclopramide HCl (Metoclopramide Inj 5 Mg/Ml Vial 2 Ml) 10 mg IVP X1 ONE; Protocol Stop: 04/29/25 11:04 Last Admin: 04/29/25 11:22 Dose: 10 mg Documented By: BY Morphine Sulfate (Morphine Sulf Inj 4 Mg/Ml Vial) 4 mg IVP X1 ONE Stop: 04/29/25 11:20 Last Admin: 04/29/25 11:22 Dose: 4 mg Documented By: BY Morphine, Reglan IV fluids Consultations Consultation(s) initiated? (list below): No Diagnosis Differential diagnosis abdominal pain: abdominal pain, constipation and diverticulitis Most likely diagnosis given after review of the tests above:: Abdominal pain Admission Indicated Admission indicated?: not indicated Admission Request Was there a request for admission?: No Disposition Plan Disposition Plan: Discharge Discharge Attestation Discharge Attestation: The patient was given an opportunity to ask questions and understood the discharge instructions. Discharge instructions specifically effects, indications for sooner follow up or return to the emergency department, and the expected course of current diagnosis. Patient condition: Stable Discharge Plan Plan Patient Disposition: HOME (Self Care) Discharge Disposition comment: Stable Prescriptions/Referrals Prescriptions/Med Rec: New dicyclomine 20 mg tablet 20 mg PO QID PRN (Reason: abdominal pain) Qty: 30 0RF No Action alprazolam 1 mg tablet 1 mg PO TID PRN (Reason: anxiety) Patient Comments: TAKE 1 TABLET BY MOUTH THREE TIMES A DAY escitalopram oxalate 10 mg tablet 10 mg PO QDAY Patient Comments: TAKE 1 TABLET BY MOUTH EVERY DAY ergocalciferol (vitamin D2) 1,250 mcg (50,000 unit) capsule 1,250 mcg PO QWEEK Patient Comments: TAKE 1 CAPSULE BY ORAL ROUTE ONCE PER WEEK. SUNDAYS montelukast 10 mg tablet 10 mg PO QDAY Patient Comments: TAKE 1 TABLET BY MOUTH EVERY DAY IN THE EVENING hydrocodone-acetaminophen 10-325 mg tablet 1 tab PO Q6H MDD 4 PRN (Reason: pain) Qty: 20 0RF Referrals: No Primary/Family,Physician [Primary Care Provider] - In 1 week Problem List Clinical Impression: Abdominal pain Patient/Caregiver Discharge Instructions Discharge Activity: activity as tolerated Education Materials: Abdominal Pain Additional Instructions: Thank you for the opportunity for serving you today. You are stable for discharged . You are advised to: Follow-up with your PCP in 1 to 2 days Return to ED for worsening of symptoms Increase oral fluids Take medication as prescribed Print Language: Yi Stand Alone Forms: Kellen Award Info., Patient Portal Info Letter GIBSON/INA Supervising Physician ROCK Supervising Physician: MD Kvng
[2025-04-29] MEDS: SODIUM CHLORIDE 0.9% 1000 ML 1,000 ML 999 ML IV (11:20)
[2025-04-29 11:22] LABS: Basophils # (Auto) 0.0 Thou/mm3 (0.0-0.2); Basophils % (Auto) 1 % (0-2.5); Eosinophils # (Auto) 0.1 Thou/mm3 (0.0-0.5); Eosinophils % (Auto) 1 % (0-10); Hematocrit 31.7 % (36.0-46.0); Hemoglobin 10.1 g/dL (12.0-16.0); Immature Granulocytes Auto 0.02 Thou/mm3 (0.00-0.00); Lymphocytes # (Auto) 1.9 Thou/mm3 (1.0-4.8); Lymphocytes % (Auto) 31 % (10-50); Mean Corpuscular HGB Conc 31.9 g/dl (31.0-37.0); Mean Corpuscular Hemoglobin 24.3 pg (25.0-35.0); Mean Corpuscular Volume 76 fL (80-100); Monocytes # (Auto) 0.4 Thou/mm3 (0.0-0.8); Monocytes % (Auto) 7 % (0-12); Neutrophils # (Auto) 3.7 Thou/mm3 (1.8-7.7); Neutrophils % (Auto) 60 % (37-80); Nucleated Red Blood Cell # 0.00 Thou/mm3 (0.00-0.00); Nucleated Red Blood Cell % 0 /100 WBC (0); Platelet Count 316 Thou/mm3 (140-440); RDW Standard Deviation 48.2 fL (36.4-46.3); Red Blood Count 4.16 Miln/mm3 (4.00-5.20); White Blood Count 6.0 Thou/mm3 (3.6-11.0)
[2025-04-29] MEDS: MORPHINE SULF INJ 4 MG/ML VIAL IVP (11:22)
[2025-04-29] MEDS: METOCLOPRAMIDE INJ 5 MG/ML VIAL 2 ML 10 MG IVP (11:22)
[2025-04-29 11:24] LABS: Bacteria,Urine Rare; Bilirubin,Urine Negative (Negative); Blood,Urine Negative (Negative); Clarity,Urine Clear (Clear/Hazy); Color,Urine Lt-Yellow (Lt Yel-Yel); Culture Indicated,Urine Not Indicated; Glucose, Urine Negative (Negative); Ketones,Urine Negative (Negative); Leukocyte Esterase,Urine Negative (Negative); Nitrite,Urine Negative (Negative); PH,Urine 7.0 (5.0-7.0); Protein,Urine Negative (Neg - Trace); RBC,Urine 2 /hpf (0-3); Specific Gravity,Urine 1.009 (1.001-1.035); Urobilinogen,Urine Negative mg/dL (0.0-1.0); WBC,Urine < 1 /hpf (0-5)
[2025-04-29 11:28] VITALS: BP 113/73; PULSE 62; RESP 16; O2SAT 100
[2025-04-29 11:42] LABS: Alanine Aminotransferase 20 U/L (10-49); Albumin, Serum 4.8 gm/dL (3.5-5.0); Albumin/Globulin Ratio 2.1 (1.2-2.2); Alkaline Phosphatase 121 U/L (46-116); Anion Gap 9 (7-16); Aspartate Amino Transferase 30 U/L (0-34); BUN/Creatinine Ratio 15 Ratio (12-20); Bilirubin,Total 0.4 mg/dL (0.3-1.2); Blood Urea Nitrogen 12 mg/dL (9-23); Calcium 9.5 mg/dL (8.3-10.6); Calcium (Corrected) 9.5 mg/dL (8.5-10.1); Carbon Dioxide 28.2 mMol/L (20.0-31.0); Chloride 106 mMol/L (98-107); Creatinine (Component) 0.8 mg/dL (0.6-1.3); Estimated Creatinine Clearance 68.8 mL/min (>60); Globulin 2.3 gm/dL (2.3-3.5); Glucose 88 mg/dL (74-106); Lipase 39 U/L (12-53); Osmolality,Calculated 283 (275-295); Potassium 4.7 mMol/L (3.4-5.1); Sodium 143 mMol/L (136-145); Total Protein 7.1 gm/dL (5.7-8.2); eGFR > 60 See Note
[2025-04-29 13:44] VITALS: BP 103/67; PULSE 61; RESP 16; O2SAT 100
== END 2025-04-29 14:11 | disposition home or self-care (01) ==
PROVIDERS: Nurse Practitioner Primary Care; Emergency Provider Family Medicine
DX: R10.33 Periumbilical pain (principal)
CPT/HCPCS: 36415; 74177; 80053; 81001; 83690; 85025; 96374; 96375; 99284; A4649; J2270; J2765; J7030; Q9967